=== PATIENT | female | born 1965 | race Caucasian/White ===

== ENCOUNTER 2019-12-07 17:27 | Emergency (ER) | payer OTHER ==
[2019-12-07 17:50] VITALS: BP 99/63
--- NOTE | 2019-12-07 18:26 | XRay Report ---
HISTORY:foreign body COMPARISON: None TECHNIQUE: AP lateral and obliques views were obtained FINDINGS: Bones: No fracture or dislocation. Joint spaces: Maintained. Soft tissues: 2 foreign bodies are present, on the AP view one is located overlying the distal tip of the second digit in the otherwise overlying the middle phalanx third digit however on lateral view t hey both appear to overlie the distal aspect second digit Additional findings: None. IMPRESSION: 1. 2 foreign bodies as noted recommend clinical correlation Signer Name: Jame Ahuja MD Signed: 12/07/2019 6:21 PM Workstation Name: [id number]
[2019-12-07] MEDS ORDERED: BUPIVACAINE/PF (0.5%) 5 MG/1 ML 10 ML VIAL INFILTRATI ONE (19:00)
[2019-12-07] MEDS ORDERED: oxyCODONE /ACETAMINOPHEN 5-325MG TAB PO ONE (19:00)
[2019-12-07] MEDS ORDERED: DIPHtheria,PERTUSSIS(ACELL),TETANUS VACCINE/PF 0.5 ML VIAL IM ONE (19:00)
[2019-12-07] MEDS ORDERED: LIDOCAINE (1%) 10 MG/1 ML VIAL 20 ML MDV INFILTRATI ONE (19:00)
--- NOTE | 2019-12-07 20:49 | Emergency Department Report ---
ED Upper Extremity Inj HPI - General Chief Complaint: Extremity Injury, Upper Stated Complaint: NAIL IN FINGER Time Seen by Provider: 12/07/19 17:53 Source: patient Mode of arrival: Ambulatory Limitations: No Limitations - History of Present Illness Initial Comments: Patient is a 54-year-old female presents emergency room with complaints of accidentally shooting a nail into her left index finger that occurred around 3 PM today. She states that she was placing some molding and was using a nail gun and accidentally shot her finger with a nail. She states initially there was some small amount of bleeding but it has since resolved. She denies any numbness or weakness. She is able to move the finger. She is unsure of her last tetanus immunization. No past medical history. No allergies to medications. - Related Data Previous Rx's Medication Instructions Recorded Last Taken Type cephALEXin [Keflex] 500 mg PO QID 7 Days #28 cap 12/07/19 Unknown Rx traMADoL [Ultram 50 MG tab] 50 mg PO Q6HR PRN #10 tablet 12/07/19 Unknown Rx Allergies Allergy/AdvReac Type Severity Reaction Status Date / Time No Known Allergies Allergy Verified 12/07/19 17:45 ED Review of Systems ROS: Stated complaint: NAIL IN FINGER Other details as noted in HPI Comment: All other systems reviewed and negative ED Past Medical Hx - Past Medical History Previous Medical History?: No - Surgical History Past Surgical History?: No - Social History Smoking Status: Never Smoker Substance Use Type: None - Medications Home Medications: Home Medications Medication Instructions Recorded Confirmed Last Taken Type cephALEXin [Keflex] 500 mg PO QID 7 Days #28 cap 12/07/19 Unknown Rx traMADoL [Ultram 50 MG tab] 50 mg PO Q6HR PRN #10 tablet 12/07/19 Unknown Rx ED Physical Exam - General Limitations: No Limitations General appearance: alert, in no apparent distress - Head Head exam: Present: atraumatic, normocephalic - Eye Eye exam: Present: normal appearance - ENT ENT exam: Present: mucous membranes moist - Extremities Exam Extremities exam: Present: other (there is a single metal nail present to the left index finger which goes through the fingernail, the metal nail enters at the palmar surface of the left index finger and exits through the fingernail, pt has FROM, neurovascularly intact) - Neurological Exam Neurological exam: Present: alert, oriented X3 - Psychiatric Psychiatric exam: Present: normal affect, normal mood - Skin Skin exam: Present: warm, dry ED Course Vital Signs 12/07/19 17:45 Temperature 97.9 F Pulse Rate 65 Respiratory 18 Rate Blood Pressure 99/63 O2 Sat by Pulse 98 Oximetry - Procedure Description Procedures done: Foreign body removal of left index finger. There is a metal nail present which enters through the palmar surface of the distal left index finger and exits through the fingernail. Digital block performed using 1% of lidocaine without epinephrine and 0.5% bupivacaine without epinephrine, it was a 50-50 mixture, 7 cc used for digital block, aspirated to make sure no vessel involvement, anesthesia achieved. Used wire cutters to cut excess nail. Was able to easily remove nail by pulling movement. There is a very small amount of bleeding and after holding pressure bleeding resolved, no signs of arterial bleeding. Cleaned finger and nail with Betadine thoroughly. Patient tolerated well, no complications, bleeding controlled, sterile dressing applied ED Medical Decision Making - Radiology Data Radiology results: report reviewed HISTORY:foreign body COMPARISON: None TECHNIQUE: AP lateral and obliques views were obtained FINDINGS: Bones: No fracture or dislocation. Joint spaces: Maintained. Soft tissues: 2 foreign bodies are present, on the AP view one is located overlying the distal tip of the second digit in the otherwise overlying the middle phalanx third digit however on lateral view they both appear to overlie the distal aspect second digit Additional findings: None. IMPRESSION: 1. 2 foreign bodies as noted recommend clinical correlation Signer Name: Jame Ahuja MD Signed: 12/07/2019 6:21 PM Workstation Name: [id number] Transcribed By: Dictated By: Jame Ahuja MD Electronically Authenticated By: Jame Ahuja MD Signed Date/Time: 12/07/191820 DD/ 19 TD/TT: - Medical Decision Making Patient is a 54-year-old female presents emergency room with complaints of accidentally shooting a nail into her left index finger that occurred around 3 PM today. She states that she was placing some molding and was using a nail gun and accidentally shot her finger with a nail. She states initially there was some small amount of bleeding but it has since resolved. She denies any numbness or weakness. She is able to move the finger. She is unsure of her last tetanus immunization. No past medical history. No allergies to medications. Vitals are stable. on exam: there is a single metal nail present to the left index finger which goes through the fingernail, the metal nail enters at the palmar surface of the left index finger and exits through the fingernail, pt has FROM, neurovascularly intact. X-ray left hand: 2 foreign bodies are present, on the AP view one is located overlying the distal tip of the second digit in the otherwise overlying the middle phalanx third digit however on lateral view they both appear to overlie the distal aspect second digit. There is not a second foreign body, it is just how the patient is holding the wood panel in the x-ray, there is only 1 foreign body present on exam. Patient given pain medication and Tdap as she did not drive to the emergency department. Foreign body removed per procedure note. Sterile dressing and finger splint applied by wet process technician and remained neurovascularly intact. Given prescription for tramadol and Keflex. Advised patient Please take medication as prescribed. Do not drive or operate machinery while taking pain medication. Please keep area clean, dry, covered. May wash with soap and water and immediately dry. No hot tub, no pool, no soaking in water. Follow-up with orthopedic doctor. Return to emergency room immediately for any new or worsening symptoms. Critical care attestation.: If time is entered above; I have spent that time in minutes in the direct care of this critically ill patient, excluding procedure time. ED Disposition Clinical Impression: Foreign body of finger of left hand Qualifiers: Encounter type: initial encounter Qualified Code(s): S60.459A - Superficial foreign body of unspecified finger, initial encounter Disposition: DC-01 TO HOME OR SELFCARE Is pt being admited?: No Does the pt Need Aspirin: No Condition: Stable Instructions: Soft Tissue Foreign Body (ED) Additional Instructions: Please take medication as prescribed. Do not drive or operate machinery while taking pain medication. Please keep area clean, dry, covered. May wash with soap and water and immediately dry. No hot tub, no pool, no soaking in water. Follow-up with orthopedic doctor. Return to emergency room immediately for any new or worsening symptoms. Prescriptions: cephALEXin [Keflex] 500 mg PO QID 7 Days #28 cap traMADoL [Ultram 50 MG tab] 50 mg PO Q6HR PRN #10 tablet PRN Reason: Pain , Severe (7-10) Referrals: KASIA MORILLO MD [Staff Physician] - 2-3 Days [facility] [Provider Group] - 2-3 Days Time of Disposition: 21:45 Print Language: [place]
== END 2019-12-07 21:50 | disposition home or self-care (01) ==
LOC: ED 17:27
DX: S60.451A Superficial foreign body of left index finger, initial encounter (principal); Z79.899 Other long term (current) drug therapy; X50.9XXA Other and unspecified overexertion or strenuous movements or postures, initial encounter; Y93.89 Activity, other specified; Y92.89 Other specified places as the place of occurrence of the external cause; Y99.8 Other external cause status
CPT/HCPCS: 90471; 90715; 99283